=== PATIENT | female | born 1970 | race Caucasian/White ===

== ENCOUNTER 2019-10-01 14:16 | Emergency (ER) | payer BC ==
--- NOTE | 2019-10-01 14:36 | EDM.PDOC ---
ED HPI GENERAL MEDICAL PROBLEM - General Chief Complaint: Respiratory Problem Stated Complaint: HEAD CONGESTION, CONGESTION AND VOMITING Time Seen by Provider: 10/01/19 14:33 Source of Information: Reports: Patient, RN Notes Reviewed - History of Present Illness INITIAL COMMENTS - FREE TEXT/NARRATIVE: 49-year-old lady had onset of nasal congestion throat irritation about 10 days ago. Nasal and sinus congestion has been worsening markedly over the past few days. A lot of pressure over the mid face, behind her eyes, is blowing colored cried out her nose and also having a lot of postnasal drainage. Her throat is irritated from the coughing and drainage. No recent fever or chills. No difficulty breathing other than the annoying nasal congestion. She does have history of prior sinus infections. Headache Pain Score (Numeric/FACES): 10 - Related Data Allergies Allergy/AdvReac Type Severity Reaction Status Date / Time Sulfa (Sulfonamide Allergy Rash Verified 10/01/19 14:30 Antibiotics) Home Meds: Home Meds Cephalexin [Keflex] 500 mg PO Q8HR #30 capsule 10/01/19 [Rx] Past Medical History - Past Health History Medical/Surgical History: Denies Medical/Surgical History Social & Family History - Tobacco Use Smoking Status *Q: Never Smoker - Caffeine Use Caffeine Use: Reports: Coffee, Soda, Tea - Recreational Drug Use Recreational Drug Use: No ED ROS GENERAL - Review of Systems Review Of Systems: See Below Constitutional: Denies: Fever, Chills HEENT: Reports: Rhinitis, Sinus Problem, Throat Pain Respiratory: Reports: Cough, Sputum. Denies: Shortness of Breath Cardiovascular: Denies: Chest Pain GI/Abdominal: Denies: Abdominal Pain, Nausea, Vomiting Musculoskeletal: Reports: No Symptoms Skin: Reports: No Symptoms Neurological: Reports: No Symptoms ED EXAM, GENERAL - Physical Exam Exam: See Below General Appearance: Alert, Mild Distress Eye Exam: Bilateral Eye: PERRL Ears: Normal External Exam Nose: Nasal Drainage Throat/Mouth: Normal Inspection, Normal Oropharynx Head: Sinus Tenderness. No: Facial Swelling Neck: Supple Respiratory/Chest: No Respiratory Distress, Lungs Clear, Normal Breath Sounds Cardiovascular: Regular Rate, Rhythm Extremities: Normal Inspection Neurological: Alert, Oriented, No Motor/Sensory Deficits Skin Exam: Warm, Dry, Normal Color Course - Vital Signs Last Recorded V/S: Last Vital Signs Temp 98.0 F 10/01/19 14:32 Pulse 81 10/01/19 14:32 Resp 20 10/01/19 14:32 BP 136/88 10/01/19 14:32 Pulse Ox 94 L 10/01/19 14:32 Departure - Departure Time of Disposition: 15:05 Disposition: Home, Self-Care 01 Condition: Fair Clinical Impression: Sinusitis, Viral syndrome - Discharge Information Prescriptions: Cephalexin [Keflex] 500 mg PO Q8HR #30 capsule Instructions: Sinusitis, Adult, [id number], Viral Illness, Adult Referrals: PCP,None [Primary Care Provider] - Forms: ED Department Discharge Additional Instructions: Rest, vaporizer or steam as needed, continue Mucinex as needed for nasal and sinus congestion. Cephalexin antibiotic 500 mg 3 times daily. Prescription has been sent electronically to clinic pharmacy located at [facility] just [place] of [facility]. You may take Tylenol in addition in between doses of mucinex 2 or 3 times daily but do not take more than 3000 mg acetaminophen per 24 hours. Clear liquids and bland diet until nausea resolving. When you are able to start eating then you can take Advil or ibuprofen in between doses of Tylenol if needed for extra pain relief. Follow-up clinic if not much better within 5-7 days as expected, return to ED as needed. Sepsis Event Note - Evaluation Sepsis Screening Result: No Definite Risk - Focused Exam Date Exam was Performed: 10/04/19 Time Exam was Performed: 08:51
== END 2019-10-01 15:26 | disposition home or self-care (01) ==
LOC: JD.ED 14:16
DX: J32.9 Chronic sinusitis, unspecified (principal); B34.9 Viral infection, unspecified
CPT/HCPCS: 99282; 99283